=== PATIENT | male | born 1980 | race Caucasian/White ===

== ENCOUNTER 2018-11-29 10:57 | Emergency (ER) | payer OTHER ==
[2018-11-29 11:44] VITALS: BP 131/87
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
== END 2018-11-29 12:11 | disposition home or self-care (01) ==
LOC: UCCORT 10:57
DX: S62.309D Unspecified fracture of unspecified metacarpal bone, subsequent encounter for fracture with routine healing (principal); Z51.89 Encounter for other specified aftercare; S51.812D Laceration without foreign body of left forearm, subsequent encounter; V67 Occupant of heavy transport vehicle injured in collision with fixed or stationary object; M25.512 Pain in left shoulder
CPT/HCPCS: 99211; G0463